=== PATIENT | female | born 1980 | race Caucasian/White ===

== ENCOUNTER 2018-02-27 17:58 | Emergency (ER) | payer MEDICAID ==
[~2018-02-27] VITALS: Ht 182.9 cm; Wt 69.7 kg
[2018-02-27 18:09] VITALS: BP 113/78
[2018-02-27 18:41] LABS: BASOPHILS # (AUTO) 0.02 x10^3/uL (0-0.1); BASOPHILS % (AUTO) 0 % (0-1); EOSINOPHILS # (AUTO) 0.27 x10^3/uL (0-0.4); EOSINOPHILS % (AUTO) 4 % (1-7); LYMPHOCYTES # (AUTO) 2.04 x10^3/uL (1-3.4); LYMPHOCYTES % (AUTO) 29 % (22-44); MD NO; MEAN CORPUSCULAR HGB CONC 33.3 g/dL (32.4-35.8); MONOCYTES # (AUTO) 0.46 x10^3/uL (0.2-0.8); MONOCYTES % (AUTO) 7 % (2-9); NEUTROPHILS # (AUTO) 4.31 x10^3/uL (1.8-6.8); NEUTROPHILS % (AUTO) 61 % (42-75); PLATELET COUNT 238 x10^3/uL (130-400); RED BLOOD COUNT 5.05 x10^6/uL (3.82-5.3); RED CELL DISTRIBUTION WIDTH 13.4 % (9.6-15.2)
[2018-02-27 18:53] LABS: CULTURE INDICATED? YES; MICROSCOPIC AUTO
[2018-02-27 18:54] LABS: ANION GAP 9 mmol/L (5-15); CALCIUM 8.3 mg/dL (8.5-10.1); CHLORIDE 108 mmol/L (98-107); CREATININE 0.69 mg/dL (0.55-1.02)
[2018-02-27 18:55] LABS: ALANINE AMINOTRANSFERASE 26 U/L (12-78); ALBUMIN 3.8 g/dL (3.4-5.0)
[2018-02-27 18:59] LABS: ALKALINE PHOSPHATASE 84 U/L (45-117); BILIRUBIN,TOTAL 0.4 mg/dL (0.2-1.0); TOTAL PROTEIN 7.8 g/dL (6.4-8.2)
[2018-02-27] MEDS ORDERED: IBUPROFEN 800 MG TABLET ONE (20:33)
[2018-02-27 20:39] LABS: CLUE CELLS NONE SEEN (NONE SEEN); WET PREP WBCS FEW (FEW)
[2018-02-27] MEDS ORDERED: IBUPROFEN 200 MG TABLET PO ONE (21:00)
[2018-02-27] MEDS ORDERED: CEFTRIAXONE 250 MG IM ONE (21:00)
[2018-02-27] MEDS ORDERED: AZITHROMYCIN 500 MG TABLET PO ONE (21:00)
[2018-02-27] MEDS ORDERED: CEFTRIAXONE 250 MG ONE (21:17)
[2018-02-27] MEDS ORDERED: AZITHROMYCIN 250 MG TABLET ONE (21:17)
== END 2018-02-27 21:27 | disposition home or self-care (01) ==
LOC: ED 20:14
DX: N89.8 Other specified noninflammatory disorders of vagina (principal); N30.90 Cystitis, unspecified without hematuria
CPT/HCPCS: 36415; 76830; 80053; 81001; 84703; 85025; 87077; 87086; 87186; 87210; 87491; 87591; 87808; 96372; 99285; J0696

== ENCOUNTER 2019-06-24 03:11 | Emergency (ER) | payer SELFPAY ==
[~2019-06-24] VITALS: Ht 182.9 cm; Wt 69.6 kg
[2019-06-24 05:35] VITALS: BP 104/68
== END 2019-06-24 05:44 | disposition home or self-care (01) ==
LOC: ED 05:36
DX: S39.012A Strain of muscle, fascia and tendon of lower back, initial encounter (principal); L03.314 Cellulitis of groin; L76.82 Other postprocedural complications of skin and subcutaneous tissue; Z48.01 Encounter for change or removal of surgical wound dressing; X58.XXXA Exposure to other specified factors, initial encounter; Y93.89 Activity, other specified; Y92.009 Unspecified place in unspecified non-institutional (private) residence as the place of occurrence of the external cause; Y99.8 Other external cause status
CPT/HCPCS: 96372; 99283; J1170